=== PATIENT | female | born 1995 | race Caucasian/White ===

== ENCOUNTER 2024-08-01 22:31 | Emergency (ER) | payer SELFPAY ==
[2024-08-01 22:44] VITALS: BP 95/70
--- NOTE | 2024-08-02 | ED.GENMED ---
History of Present Illness
General
Chief Complaint: Abdominal Pain
Source: patient
Exam Limitations: none
Time Seen by Provider: 08/01/24 23:58
Nursing documentation reviewed up to this point in time: agreed with
History of Present Illness
History of Present Illness:
Patient is a 28-year-old female presenting to the emergency department with intractable nausea, vomiting. Patient reports symptoms started acutely this evening and reports frequent waves of forceful vomiting. She also reports crampy abdominal pain
throughout her entire abdomen. Patient denies any known fever. She has not had any episodes of diarrhea. She does state that she feels very lightheaded while she is having these episodes of vomiting.
Patient denies any history of similar symptoms. She has had no known sick contacts.
Patient does report frequent marijuana smoking�which she has been doing for the past 7 years.
Review of Systems
Review of Systems
Allergies reviewed?: Yes
All Other Systems: ROS reviewed and negative except as documented in HPI and ROS
Phy Exam
Physical Exam
Physical Exam:
Vitals: Tachycardic, afebrile
General: Patient is pale appearing, actively retching on exam
Skin: Warm and dry, no rashes or lesions
Head: Normocephalic, atraumatic
Eyes: Sclera nonicteric. EOMs intact. No nystagmus.
Throat: Protecting airway
Neck: Normal ROM, no cervical spine tenderness, no meningismus
Cardiac: Tachycardic, normal rhythm, no murmurs.
Pulm: Normal respiratory effort, no wheezes, rales, rhonchi heard on exam
.
Abdomen: Abdomen soft. Mild diffuse abdominal tenderness. No focal tenderness McBurney's point. No CVA tenderness
Extremities: No evidence of cyanosis or edema. Palpable DP pulses bilaterally
Neuro: AAOx3. Grossly intact.
Psychiatric: Normal affect.
Course
Orders/Labs/Results
Orders:
Orders
08/02/24 00:10
Urinalysis Reflex To Culture Urgent
0.9% Sodium Chloride 1000 ml [Nss] 1,000 ml IV BOLUS
Morphine Sulfate 4 mg IV NOW STA
Ondansetron Injectable [Zofran] 4 mg IV NOW STA
Test Result ONCE
08/02/24 00:12
US Abdomen Complete/Upper Urgent
Comment:
Reason For Exam: Upper abdominal pain, +N/V
08/02/24 00:26
Complete Blood Count/With Diff Urgent
Comprehensive Metabolic Panel Urgent
HCG, Serum Qualitative Screen Urgent
Lipase Urgent
08/02/24 01:11
Electrocardiogram (*1) Urgent
Reason for Study: QTc Monitoring
EKG- Treatment ONCE
08/02/24 01:17
Metoclopramide [Reglan] 10 mg IV NOW STA
Abnormal Lab Results
08/02/24
00:26
WBC 13.9 H 10^3/uL
(4.8-10.8)
MCV 80.4 L fL
(81.0-99.0)
Absolute Neuts (auto) 12.7 H 10^3/uL
(1.4-6.5)
Absolute Lymphs (auto) 0.5 L 10^3/uL
(1.2-3.4)
Neutrophils % 91.5 H %
(42.2-75.2)
Lymphocytes % 3.2 L %
(20.5-51.1)
Glucose 145 H mg/dl
(70-99)
08/02/24 00:26
08/02/24 00:26
Vital Signs
Initial and Last Documented VS:
Initial Vital Signs
Pulse Resp Pulse Ox
123 24 99
08/01/24 22:33 08/01/24 22:33 08/01/24 22:33
Last Documented Vital Signs
Pulse Resp BP Pulse Ox
91 20 115/92 99
08/02/24 02:00 08/02/24 00:10 08/02/24 02:00 08/02/24 02:00
MDM/Problems Addressed
Differential Diagnosis Includes:
Not limited to: Viral gastroenteritis, biliary colic, cholecystitis, cannabis hyperemesis, bowel obstruction, etc.
MDM/Problems Addressed:
28-year-old female with intractable nausea/vomiting and diffuse abdominal pain. No fever or diarrhea. No known sick contacts. Patient tachycardic on arrival which did mostly improve by my assessment. Patient is afebrile with otherwise stable
vital signs. Physical exam as above. Patient actively retching on initial examination. Tachycardic with normal heart sounds. Lungs clear bilaterally. Abdomen is soft with somewhat diffuse tenderness more so in upper abdomen. No focal
tenderness McBurney's point. No rebound tenderness or guarding. Differential broad at this time. Possibly viral gastroenteritis versus cannabis induced cyclical vomiting versus acute intra-abdominal infection. Will check basic labs, give IV
fluids, IV antiemetic, and treat pain. Will check abdominal ultrasound. Will closely monitor and reassess.
Update: Labs reviewed. Mild leukocytosis. Chemistry without any acute abnormalities. test negative. Patient remains with frequent forceful vomiting despite IV Zofran. She seems to be having a vagal response during these forceful
vomiting episodes although heart rate quickly improves. Will try IV Reglan. Ultrasound pending
Update: Abdominal without any acute abnormalities. Patient feeling much better after IV Reglan. She has had no additional episodes of vomiting. On reassessment�abdomen soft and essentially nontender throughout. No focal tenderness at McBurney's
point. At this point�given patient is afebrile with benign abdominal exam�lower suspicion for acute intra-abdominal infection. Do not feel CT scan indicated. No evidence of acute cholecystitis on ultrasound. Possibly food poisoning, viral
gastroenteritis, or theoretically cannabis hyperemesis would be on differential still. Will p.o. challenge.
Update 3:29 AM: Patient tolerated food and water without nausea or vomiting. Patient states she feels so much better and feels stable for discharge home. Her vital signs have normalized. Will discharge with oral Reglan and very strict return
precautions. Patient expressed verbal understanding and is comfortable with plan.
Chronic conditions affecting care:
N/A
Acute Exacerbation and/or Progression of Chronic Illness:
N/A
*Pulse Oximetry
Patient hypoxic: no
*EKG
Interpreted by ED Provider?: Yes
EKG Intrepretation Date: 08/02/24
Interpretation: normal
Comparison EKG: no comparison EKG present
Heart Rate: 97
Rate: normal
Rhythm: sinus
[place]: normal axis
Interval: normal interval
QRS Pattern: normal QRS
Ischemia: no ischemia
*Home Fire Alarm Installer Interpretation
Rate: normal and Home Fire Alarm Installer- N/A
Interpretation: normal
Heart Rate: 91
Rhythm: sinus
*Critical Care Note
Total Time (30-74mins, 75-104mins- exclusive of procedures): Not Applicable
ED Attending Note
-
Portions of this chart may have been created with voice recognition software.� Occasional wrong word or��sound alike� substitutions may have occurred due to the inherent limitations of voice recognition software.
Discharge Plan
Departure
Patient Disposition: Home (Routine Discharge)
Date of Disposition: 08/02/24
Time of Disposition: 03:30
Patient with high blood pressure during this ER visit?: Yes
Condition: Good
Covid-19: Not Applicable
Discharge Problem:
Nausea & vomiting, Abdominal pain
Instructions: Nausea and Vomiting, Adult (DC), Abdominal Pain, BLOOD PRESSURE
Prescriptions:
New
metoclopramide HCl [Reglan] 10 mg tablet
10 mg PO Q6H PRN (Reason: nausea and vomiting) Qty: 7 0RF
Referrals:
NONE,* [Family Provider] -
Activity Restrictions/Additional Instructions:
RETURN TO THE EMERGENCY DEPARTMENT WITH ANY FEVER, CHILLS, SEVERE ABDOMINAL PAIN, INTRACTABLE NAUSEA/VOMITING, PERSISTENT LACK OF APPETITE, SIGNS OF SEVERE DEHYDRATION, WORSENING IN CURRENT SYMPTOMS, OR ANY OTHER CONCERNS
- You had lab work, an abdominal ultrasound in the emergency department. Your white blood cell count was mildly elevated.
- As discussed�we are uncertain the exact cause of your nausea/vomiting today. It is possible that it may be related to your marijuana use.
- A prescription for oral Reglan has been sent to your pharmacy. You can take this up to every 6 hours as needed for persistent nausea/vomiting. It is important stable hydrated. I would recommend a bland diet over the next few days and slowly
advance as tolerated.
Monitor your symptoms closely and return to the emergency department with any acute worsening/new symptoms or any other concerns
Interventions
Interventions:
*Risk Screen - Suicide Last Done: 08/01/24 22:33
*General Assessment Last Done: 08/01/24 22:33
*Neglect/Abuse Screening Last Done: 08/01/24 22:33
*ED- Fall Risk Assessment Last Done: 08/02/24 00:04
*ED COVID-19 Vaccine History Last Done: 08/02/24 00:04
DW-Xjrezi-Bnilmxzosq Assessment Last Done: 08/02/24 00:10
Discharge Date and Time
Print Language: KHMER
[2024-08-02 00:09] VITALS: BP 127/61
[2024-08-02] MEDS: NSS 1000 IV (00:21)
[2024-08-02] MEDS: ZOFRAN 4 MG IV (00:21)
[2024-08-02] MEDS: MORPHINE SULFATE 4 MG IV (00:21)
[2024-08-02 00:39] LABS: % Basophils 0.2 % (0-2); % Eosinophils 0.7 % (0-6); % Immature Granulocytes 0.3 % (0-0.5); % Lymphocytes 3.2 % (20.5-51.1); % Monocytes 4.1 % (1.7-9.3); % Neutrophils 91.5 % (42.2-75.2); Absolute Eosinophils 0.1 10^3/uL (0-0.7); Absolute Lymphocytes 0.5 10^3/uL (1.2-3.4); Absolute Monocytes 0.6 10^3/uL (0.1-0.6); Absolute Neutrophils 12.7 10^3/uL (1.4-6.5); Hematocrit 41.9 % (37.0-47.0); Hemoglobin 14.5 g/dL (12.0-16.0); Mean Corp Hgb Conc. 34.6 g/dL (33.0-37.0); Mean Corpuscular Hgb 27.8 pg (27.0-31.0); Mean Corpuscular Volume 80.4 fL (81.0-99.0); Mean Platelet Volume 9.6 fL (7.4-10.4); Nucleated Red Blood Cells % 0 %; Platelet Count 323 10^3/uL (130-400); Red Blood Cell Count 5.21 10^6/uL (4.20-5.40); Red Cell Dist. Width 13.2 % (11.5-14.5); White Blood Cell Count 13.9 10^3/uL (4.8-10.8)
[2024-08-02 00:51] LABS: HCG, Serum Qualitative Screen Negative
[2024-08-02 00:54] LABS: ALT (SGPT) 22 U/L (0-35); AST (SGOT) 20 U/L (14-36); Albumin 4.5 g/dl (3.5-5.0); Alkaline Phosphatase 79 U/L (38-126); Blood Urea Nitrogen 16 mg/dl (7-17); Calcium 9.6 mg/dl (8.4-10.2); Carbon Dioxide 22 mmol/L (22-30); Chloride 107 mmol/L (98-107); Glucose 145 mg/dl (70-99); Lipase 146 U/L (23-300); Potassium 3.8 mmol/L (3.5-5.1); Sodium 141 mmol/L (135-145); Total Bilirubin 0.8 mg/dl (0.2-1.3); Total Protein 7.4 g/dl (6.3-8.2); eGFR > 60.00
[2024-08-02 01:00] VITALS: BP 145/94
[2024-08-02 01:27] VITALS: BMI 43.2
[2024-08-02] MEDS: REGLAN 10 MG IV (01:29)
[2024-08-02 02:00] VITALS: BP 115/92
[2024-08-02 03:00] VITALS: BP 133/63
== END 2024-08-02 03:42 | disposition home or self-care (01) ==
LOC: EMR 22:31
PROVIDERS: Physician Assistant; EMERGENCY PHYSICIAN Emergency Medicine
DX: R11.2 Nausea with vomiting, unspecified (principal); R10.10 Upper abdominal pain, unspecified; R42 Dizziness and giddiness; R00.0 Tachycardia, unspecified; R03.0 Elevated blood-pressure reading, without diagnosis of hypertension; F12.90 Cannabis use, unspecified, uncomplicated; Z88.6 Allergy status to analgesic agent
CPT/HCPCS: 99285; 96374; 96375 ×2; 96361; 76700; 80053; 83690; 84703; 85025; 93005